=== PATIENT | male | born 1990 | race Caucasian/White ===

== ENCOUNTER 2022-09-17 05:56 | Inpatient (IN) | payer BC ==
[2022-09-17] VITALS (7 sets, daily range): BP systolic 125–208; BP diastolic 73–95
[~2022-09-17] VITALS: Ht 180.3 cm; Wt 74.8 kg
--- NOTE | 2022-09-17 06:12 | NUR ---
[id number] BIBRA C/O FIRST TIME WITNESSED TONIC CLONIC SEIZURE -HEAD TRAUMA UPON ARRIVAL POSTICTAL AWAKE;GCS 9. TOLERATING R/A WELL WITH NO RESP DISTRESS. SAFETY SEIZURE MEASURES IN PLACE. CONNECTED PT TO POX AND MONITOR. Addendum: 09/17/22 at 0626 by JISIP [id number] BIBRA C/O FIRST TIME WITNESSED TONIC CLONIC SEIZURE BY AT 0500. -HEAD TRAUMA UPON ARRIVAL POSTICTAL AWAKE;GCS 9. TOLERATING R/A WELL WITH NO RESP DISTRESS. SAFETY SEIZURE MEASURES IN PLACE. CONNECTED PT TO POX AND MONITOR.
--- NOTE | 2022-09-17 06:48 | NUR ---
LAC #20G S/L BLOOD COLLECTED AND SENT TO LAB
[2022-09-17] MEDS ORDERED: LORAZEPAM INJ 2 MG/ML VIAL ONE ×3 (06:50→12:23)
--- NOTE | 2022-09-17 06:53 | NUR ---
URINE COLLECTED AND SENT TO LAB
--- NOTE | 2022-09-17 06:58 | NUR ---
TAKEN TO CT AT THIS TIME
[2022-09-17] MEDS ORDERED: LORAZEPAM INJ 2 MG/ML VIAL IVP ONE (07:00)
--- NOTE | 2022-09-17 07:09 | NUR ---
PT RETURNED TO ER BED [address]
--- NOTE | 2022-09-17 07:15 | NUR ---
EMT AT PT'S BEDSIDE FOR EKG
[2022-09-17 07:18] LABS: BASOPHILS % (AUTO) 0.3 % (0.0-2.0); EOSINOPHILS % (AUTO) 0.2 % (0.0-6.0); HEMATOCRIT 47 % (39-51); HEMOGLOBIN 15.7 g/dL (13.5-17.5); LYMPHOCYTES # (AUTO) 0.6 K/uL (0.8-4.8); MEAN CORPUSCULAR HGB CONC 33 g/dl (31.0-36.0); MEAN CORPUSCULAR VOLUME 87 fL (80-96); MONOCYTES # (AUTO) 0.6 K/uL (0.1-1.30); MONOCYTES % (AUTO) 11.2 % (2.0-12.0); NEUTROPHILS # (AUTO) 4.2 K/uL (1.8-8.9); NEUTROPHILS % (AUTO) 77.3 % (43.0-81.0); PLATELET COUNT (AUTO) 160 K/uL (150-450); RED BLOOD CELL COUNT(AUTO) 5.36 MIL/uL (4.5-6.0); WHITE BLOOD COUNT (AUTO) 5.4 K/uL (4.3-11.0)
[2022-09-17 07:53] LABS: ALANINE AMINOTRANSFERASE 184 U/L (12-78); ALBUMIN 4.3 g/dL (3.4-5.0); ALKALINE PHOSPHATASE 46 U/L (46-116); ASPARTATE AMINOTRANSFERASE 99 U/L (15-37); BILIRUBIN,TOTAL 0.3 mg/dL (0.2-1.0); CALCIUM, SERUM 9.2 mg/dL (8.5-10.1); CARBON DIOXIDE 25 mmol/L (21-32); CHLORIDE 101 mmol/L (98-107); POTASSIUM 3.9 mmol/L (3.5-5.1); SODIUM SERUM 139 mmol/L (136-145); TOTAL PROTEIN, SERUM 7.9 g/dL (6.4-8.2); UREA NITROGEN, BLOOD 14 mg/dL (7-18)
[2022-09-17 07:55] LABS: ALCOHOL, BLOOD < 3 mg/dL (0-0); CREATININE 1.4 mg/dL (0.6-1.3); GLUCOSE 152 mg/dL (74-106)
[2022-09-17 08:09] LABS: BILIRUBIN,DIRECT 0.1 mg/dL (0.0-0.2)
--- NOTE | 2022-09-17 08:10 | NUR ---
Pt had witnessed seizure started at 0808. Stop time 08 BP 153/92 Hr 103. Pt safe in bed
--- NOTE | 2022-09-17 08:23 | NUR ---
SPINAL FLUID SPECIMEN SENT TO LAB
[2022-09-17] MEDS ORDERED: CEFTRIAXONE 2 G in IV D5W 50 ML IV ONE (08:30)
[2022-09-17] MEDS ORDERED: LEVETIRACETAM (500MG) 500 MG in IV NS 0.9% 100 ML IV ONE (08:30)
[2022-09-17] MEDS ORDERED: VANCOMYCIN 1 GM in IV D5W 250 ML IV ONE (08:30)
[2022-09-17] MEDS ORDERED: IV NS 0.9% 1,000 ML BAG IV ONE ×2 (08:30→10:30)
[2022-09-17] MEDS ORDERED: LORAZEPAM INJ 2 MG/ML VIAL IV ONE ×2 (08:30→12:30)
[2022-09-17] MEDS ORDERED: ACYCLOVIR IV 1 GM in IV D5W 250 ML IV ONE (08:30)
--- NOTE | 2022-09-17 08:35 | NUR ---
RAPID COVID SWAB AND SENT TO LAB
[2022-09-17] MEDS ORDERED: PRED20TA PO (08:46)
[2022-09-17] MEDS ORDERED: DOXY-326 PO (08:46)
[2022-09-17] MEDS ORDERED: NAPR-1303 PO (08:46)
--- NOTE | 2022-09-17 08:50 | NUR ---
[facility] PAGED. AWAITING HOSPITALIST CALL BACK.
--- NOTE | 2022-09-17 08:52 | NUR ---
DR GOYAL PAGED TALKING TO DR OLIVERA.
[2022-09-17 09:20] LABS: CSF GLUCOSE 90 mg/dL (40-70)
--- NOTE | 2022-09-17 09:30 | NUR ---
CARIS[facility] [phone] OLIVERA.
[2022-09-17] MEDS ORDERED: ONDANSETRON HCL/PF 4 MG/2 ML VIAL IVP ONE (10:00)
--- NOTE | 2022-09-17 10:01 | NUR ---
PER RAYO, UROLOGY [place] AT [phone], PT WAS ON DOXYCYCLINE 100 MG 2X PER DAY AND BACTRIM DOUBLE STRENGTH ABOUT 2-3 WEEKS AGO FOR A URINARY INFECTION
[2022-09-17 10:11] LABS: CSF PROTEIN 300.04 mg/dL (15-45)
[2022-09-17] MEDS ORDERED: ONDANSETRON HCL/PF 4 MG/2 ML VIAL ONE (10:14)
--- NOTE | 2022-09-17 10:14 | NUR ---
[facility] PROTEIN-300.04 DR OLIVERA MADE AWARE
--- NOTE | 2022-09-17 11:03 | NUR ---
Jessica mc in [facility] - 09/17/22 at 1105 by DAWOOD BED [id number]
--- NOTE | 2022-09-17 11:04 | NUR ---
ROOM ASSIGNED 260. ADMITTING AWARE.
--- NOTE | 2022-09-17 11:39 | NUR ---
REPORT GIVEN TO BIBIANA ACKERMAN OF ICU
--- NOTE | 2022-09-17 11:42 | NUR ---
Pt was transfered to icu in stable condition. latest vitals are HR-87, BP 141/87, 97 RA.
[2022-09-17] MEDS: PROPOFOL 100 ML IV PRN ×2 (12:00→17:07)
[2022-09-17] MEDS ORDERED: LEVETIRACETAM (500MG) 1,000 MG in IV NS 0.9% 100 ML IV SCH (12:00)
[2022-09-17] MEDS ORDERED: LORAZEPAM INJ 2 MG/ML VIAL IVP PRN (12:30)
[2022-09-17] MEDS ORDERED: LEVETIRACETAM (500MG) 2,000 MG in IV NS 0.9% 100 ML IV SCH ×4 (12:30)
[2022-09-17] MEDS ORDERED: phenytoin SODIUM IV 1,000 MG in IV NS 0.9% 100 ML IV ONE (12:30)
[2022-09-17] MEDS ORDERED: PHENYTOIN SODIUM IV 100 MG/2ML VIAL IV SCH (13:00)
[2022-09-17] MEDS ORDERED: ACETAMINOPHEN 650 MG/SUPP.RECT RC PRN (13:30)
[2022-09-17] MEDS ORDERED: MIDAZOLAM HCL 50 MG in IV NS 0.9% 40 ML IV PRN (13:30)
[2022-09-17] MEDS ORDERED: IV D5/ 0.9% NACL 1,000 ML IV PRN (13:30)
[2022-09-17] MEDS ORDERED: ONDANSETRON HCL/PF 4 MG/2 ML VIAL IV PRN (13:30)
--- NOTE | 2022-09-17 13:38 | NUR ---
ICU/RN PT RECEIVED IN ICU AROUND 1200. PT SEIZING UPON ARRIVAL. HOT TOP LINER HELPER BRIONNA OLMSTEAD, MORRIS SENA AND DR. ABREU AT BEDSIDE. ORDERED RECEIVED FOR 2MG IV ATIVAN STAT. ATIVAN OVERRIDE IN PIXIS AND ADMINISTERED TO PATIENT. PT UNRESPONSIVE TO PAINFUL STIMULI. PT OPENED HIS EYES FOR A BRIEF MOMENT BEFORE SEIZING AGAIN. PER EZEQUIEL SENA AND MD ABREU, AGREEMENT TO INTUBATE FOR AIRWAY PROTECTION. PT DOES NOT DEMONSTRATE ANY GAG OR COUGH REFLEX, PUPILS ARE DILATED AND UNRESPONSIVE TO LIGHT. PT INTUBATED, 7.5/25, FIO2 100% PEEP OF 5. CXR STAT TAKEN AT BEDSIDEPT SAT 98% ON BEDSIDE MONITOR. BP ELEVATED, DOCTOR AWARE. HR UNSTABLE, VARYING BETWEEN SINUS NORA TO SINUS TACH. TALKED TO DOCTOR ROWLAND (ADMITTING) ON THE PHONE, ORDER RECEIVED AND PLACED. DR. ROWLAND ON HIS WAY TO SEE PT AT BEDSIDE
[2022-09-17] MEDS: KEPPRA 1000 MG in IV NS 100 ML IV SCH ×2 (13:52→15:09)
[2022-09-17] MEDS ORDERED: MIDAZOLAM HCL 100 MG in IV NS 0.9% 80 ML IV PRN (14:00)
[2022-09-17] MEDS ORDERED: ROCURONIUM BROMIDE 50 MG/5 ML IV ONE (14:17)
[2022-09-17] MEDS ORDERED: ETOMIDATE 2 MG/ML VIAL IV ONE (14:17)
[2022-09-17] MEDS ORDERED: VANCOMYCIN 1 GM in IV D5W 250 ML IV SCH ×2 (14:30→20:00)
[2022-09-17] MEDS ORDERED: MAGNESIUM HYDROXIDE 30 ML UDC PO PRN (16:00)
[2022-09-17] MEDS ORDERED: MAGN400O6 PO (16:44)
[2022-09-17] MEDS ORDERED: LORA2VIA11 IVP (16:44)
[2022-09-17] MEDS ORDERED: [UNRECOGNIZED DRUG - OTHER] IV (16:44)
[2022-09-17] MEDS ORDERED: PROP10VI IV (16:44)
[2022-09-17] MEDS ORDERED: ACET650S11 RC (16:44)
[2022-09-17] MEDS ORDERED: VANC1PIG IV (16:44)
[2022-09-17] MEDS ORDERED: LEVE100S IV (16:44)
[2022-09-17] MEDS ORDERED: ONDA4VIA23 IV (16:44)
[2022-09-17] MEDS ORDERED: [UNRECOGNIZED DRUG - CODE] IJ (16:44)
[2022-09-17] MEDS ORDERED: ACYC500V2 IV (16:44)
[2022-09-17] MEDS ORDERED: CEFT2VIA14 IV (16:44)
--- NOTE | 2022-09-17 16:50 | NUR ---
TELEPHONE REPORT GIVEN TEA ACKERMAN AT [facility] FOR TRANSPORT TO ROOM 8S18 AT [facility]. PT SCHEDULED TO BE PICKED UP BY TRANSPORT BETWEEN [phone].
[2022-09-17] MEDS ORDERED: ACYCLOVIR IV 600 MG in IV D5W 100 ML IV SCH (18:00)
[2022-09-17 18:09] LABS: ABG BASE EXCESS 0.8 mmol/L; ABG OXYGEN SATURATION 99.5 % (92.0-98.5); ABG PCO2 43.8 mmHg (35.0-45.0); ABG PH 7.392 (7.350-7.450); ABG PO2 514.9 mmHg (75.0-100.0); AaDO2 154.3 mmHg; COHb 0.5 % (0.5-1.5); MetHb 0.6 % (0.0-1.5); O2Hb 98.4 % (94.0-97.0); SITE, ABG Right Radial; VENT MODE, BG AC 16 500 100% +5
--- NOTE | 2022-09-17 19:24 | NUR ---
REPORT GIVEN TO TRACK LINER OPERATOR FOR TRANSPORT TO [facility]. TRANSPORT TEAM TAKING PATIENT WITH 1 PROPOFOL BOTTLE. PT TOOK HOME PT'S BELONGINGS. TRANSPORT TEAM LEAVING ICU AT 1927
[2022-09-17] MEDS ORDERED: KEPPRA 1000 MG in IV NS 100 ML IV SCH (20:00)
[2022-09-17] MEDS ORDERED: KEPPRA 500 MG in IV NS 100 ML IV SCH (20:00)
[2022-09-17] MEDS ORDERED: CEFTRIAXONE 2 G in IV D5W 100 ML IV SCH (20:00)
== END 2022-09-17 19:39 | disposition short-term general hospital (02) | DRG 871 ==
LOC: ER 06:03 → ICU 11:14
PROVIDERS: ADMIT Internal Medicine; ATTEND Internal Medicine
PROC: 5A1935Z Respiratory Ventilation, Less than 24 Consecutive Hours (ICD-10-PCS; principal; 2022-09-17)
PROC: 0BH17EZ Insertion of Endotracheal Airway into Trachea, Via Natural or Artificial Opening (ICD-10-PCS; 2022-09-17)
PROC: 009U3ZX Drainage of Spinal Canal, Percutaneous Approach, Diagnostic (ICD-10-PCS; 2022-09-17)
DX: A41.9 Sepsis, unspecified organism (principal); G93.41 Metabolic encephalopathy; J96.00 Acute respiratory failure, unspecified whether with hypoxia or hypercapnia; A87.9 Viral meningitis, unspecified; G40.911 Epilepsy, unspecified, intractable, with status epilepticus; A86 Unspecified viral encephalitis; R74.01 Elevation of levels of liver transaminase levels; K31.89 Other diseases of stomach and duodenum; Z98.890 Other specified postprocedural states; Z87.891 Personal history of nicotine dependence; F12.90 Cannabis use, unspecified, uncomplicated; F19.21 Other psychoactive substance dependence, in remission; F10.91 Alcohol use, unspecified, in remission; Y90.9 Presence of alcohol in blood, level not specified; R21 Rash and other nonspecific skin eruption
CPT/HCPCS: 36415; 36600; 70450-TC; 70470-TC; 71045-TC; 76536-TC; 80048-TC; 80076-TC; 82962-TC; 83605-TC; 85025-TC; 85730-TC; 86592; 86787; 87040-TC; 87081-TC; 89051-TC; 94799-TC; 95819-TC; 99082-TC; C9803; G0378; G0480; J0133; J0696; J1953; J2060; J2250; J2405; J3370; J3490; J7030; J7042; J7050; J7060